=== PATIENT | female | born 1930 ===

== ENCOUNTER 2019-10-24 13:43 | Inpatient (IN) | payer OTHER ==
[~2019-10-24] VITALS: Ht 165.1 cm; Wt 83.6 kg
[2019-10-24] MEDS ORDERED: Lovastatin20 MG PO (13:54)
[2019-10-24 14:53] LABS: BASOPHILS ABSOLUTE AUTO 0.01 K/mm3 (0.00-0.23); BASOPHILS PERCENT AUTO 0 % (0-2); EOSINOPHILS ABSOLUTE AUTO 0.02 K/mm3 (0.00-0.68); EOSINOPHILS PERCENT AUTO 0 % (0-6); Hematocrit 38.2 % (33.0-51.0); Hemoglobin 12.4 g/dL (11.5-16.0); IMMATURE GRAN ABSOLUTE AUTO 0.02 K/mm3 (0.00-0.10); IMMATURE GRAN PERCENT AUTO 0 % (0-1); LYMPHOCYTES PERCENT AUTO 12 % (21-46); MONOCYTES ABSOLUTE AUTO 0.52 K/mm3 (0.16-1.47); MONOCYTES PERCENT AUTO 9 % (4-13); Mean Corpuscular HGB 29.3 pg (26.0-34.0); Mean Corpuscular HGB Conc 32.5 g/dL (31.5-36.5); Mean Corpuscular Volume 90 fL (80-100); Mean Platelet Volume 10.3 fL (9.1-12.4); NEUTROPHILS ABSOLUTE AUTO 4.51 K/mm3 (1.96-9.15); NEUTROPHILS PERCENT AUTO 78 % (41-73); Platelet Count 168 K/mm3 (150-400); RDW Standard Deviation 46.5 fL (35.1-46.3); Red Blood Cell Count 4.23 M/mm3 (3.80-5.20); White Blood Cell Count 5.78 K/mm3 (4.00-11.30)
[2019-10-24 15:12] LABS: Alanine Aminotransfer (ALT/SGP 19 U/L (12-78); Albumin/Globulin Ratio 0.8 (0.8-1.8); Alk Phos 67 U/L (50-136); Anion Gap 9 mmol/L (6-16); Aspartate Aminotrans (AST/SGOT 15 U/L (12-37); Bilirubin, Total 0.4 mg/dL (0.1-1.0); Blood Urea Nitrogen 16 mg/dL (8-24); Bun/Creatinine Ratio 21.6 (12.0-20.0); CO2, Blood 26 mmol/L (21-32); Calcium, Blood 8.3 mg/dL (8.5-10.1); Chloride, Blood 99 mmol/L (98-108); Creatinine, Blood 0.74 mg/dL (0.40-1.00); Glomerular Filtration Rate >60 (60-); Glucose, Blood 121 mg/dL (70-99); Potassium, Blood 3.8 mmol/L (3.5-5.5); Sodium, Blood 134 mmol/L (136-145); Troponin I <0.015 ng/mL (0.000-0.040)
[2019-10-25 02:58] LABS: Adenovirus Not Detected (NOT DETECT); Bordetella pertussis Not Detected (NOT DETECT); Chlamydophila pneumoniae Not Detected (NOT DETECT); Coronavirus 229E Not Detected (NOT DETECT); Coronavirus HKU1 Not Detected (NOT DETECT); Coronavirus NL63 Not Detected (NOT DETECT); Coronavirus OC43 Not Detected (NOT DETECT); Human Metapneumovirus Not Detected (NOT DETECT); Human Rhinovirus/Enterovirus Not Detected (NOT DETECT); Influenza A Not Detected (NOT DETECT); Influenza A/2009-H1 Not Detected (NOT DETECT); Influenza A/H1 Not Detected (NOT DETECT); Influenza A/H3 Not Detected (NOT DETECT); Influenza B Not Detected (NOT DETECT); Mycoplasma pneumoniae Not Detected (NOT DETECT); Parainfluenza Virus 1 Not Detected (NOT DETECT); Parainfluenza Virus 2 Not Detected (NOT DETECT); Parainfluenza Virus 3 Not Detected (NOT DETECT); Parainfluenza Virus 4 Not Detected (NOT DETECT); Respiratory Syncytial Virus Detected (NOT DETECT)
--- NOTE | 2019-10-25 04:46 | NUR ---
SHIFT SUMMARY PT ARRIVED FROM ER WITH SOME NAUSEA. PT TX AND WAS RELIEVED. PT ALSO COMPLAINED OF HEADACHE AND SORE THROAT. PT TX PER EMAR WITH RELIEF. PT HAS BEEN SLEEPING WELL. PT CURRENTLY SLEEPING AND BREATHING EASY. CALL LIGHT IN REACH.
[2019-10-25 05:02] LABS: BASOPHILS ABSOLUTE AUTO 0.01 K/mm3 (0.00-0.23); BASOPHILS PERCENT AUTO 0 % (0-2); EOSINOPHILS PERCENT AUTO 0 % (0-6); Hematocrit 35.8 % (33.0-51.0); Hemoglobin 11.5 g/dL (11.5-16.0); IMMATURE GRAN ABSOLUTE AUTO 0.02 K/mm3 (0.00-0.10); IMMATURE GRAN PERCENT AUTO 0 % (0-1); LYMPHOCYTES ABSOLUTE AUTO 0.49 K/mm3 (0.84-5.20); LYMPHOCYTES PERCENT AUTO 8 % (21-46); MONOCYTES ABSOLUTE AUTO 0.33 K/mm3 (0.16-1.47); MONOCYTES PERCENT AUTO 6 % (4-13); Mean Corpuscular HGB 29.3 pg (26.0-34.0); Mean Corpuscular HGB Conc 32.1 g/dL (31.5-36.5); Mean Corpuscular Volume 91 fL (80-100); Mean Platelet Volume 11.1 fL (9.1-12.4); NEUTROPHILS ABSOLUTE AUTO 5.02 K/mm3 (1.96-9.15); NEUTROPHILS PERCENT AUTO 86 % (41-73); Platelet Count 148 K/mm3 (150-400); RDW Coefficient Variation 14.2 % (11.7-14.2); RDW Standard Deviation 47.7 fL (35.1-46.3); Red Blood Cell Count 3.92 M/mm3 (3.80-5.20); White Blood Cell Count 5.87 K/mm3 (4.00-11.30)
[2019-10-25 05:44] LABS: Anion Gap 7 mmol/L (6-16); Blood Urea Nitrogen 12 mg/dL (8-24); Bun/Creatinine Ratio 18.3 (12.0-20.0); CO2, Blood 26 mmol/L (21-32); Calcium, Blood 8.1 mg/dL (8.5-10.1); Chloride, Blood 99 mmol/L (98-108); Creatinine, Blood 0.66 mg/dL (0.40-1.00); Glomerular Filtration Rate >60 (60-); Glucose, Blood 144 mg/dL (70-99); Potassium, Blood 3.7 mmol/L (3.5-5.5); Sodium, Blood 132 mmol/L (136-145)
[2019-10-25 06:10] LABS: Source, Urine Clean Catch
[2019-10-25 06:13] LABS: Bilirubin, Urine Neg (Neg); Blood, Urine 2+ (Neg); Glucose Qualitative, Urine 1+ (Neg); Ketones, Urine 1+ (Neg); Leukocyte Esterase, Urine Neg (Neg); Nitrite, Urine Neg (Neg); Protein, Urine 2+ (Neg); Urobilinogen, Urine NORM (Normal)
[2019-10-25 06:22] LABS: Appearance, Urine Clear (Clear); Color, Urine Yellow (P-Yellow)
[2019-10-25 06:24] LABS: Bacteria Many /hpf; Squamous Epithelial Cells Few /hpf (Few)
--- NOTE | 2019-10-25 17:08 | NUR ---
PATIENT IS ALERT AND ORIENTED AND COOPERATIVE WITH CARE. NO COMPLAINTS OF PAIN. PATIENT DID HAVE A TEMP OF 100.4, TREATED WITH TYLENOL. THE PATIENT'S ORAL TEMPERATURE IS NOW 98.6. SHE HAS HAD VISITORS THROUGHOUT THE DAY. SHE HAS SLEPT BETWEEN MEALS AND VISITORS. SHE GOT A SHOWER THIS AFTERNOON. COMPLAINED OF A SORE THROAT THIS MORNING. MEDS GIVEN PER EMAR. WILL CONTINUE TO MONITOR.
--- NOTE | 2019-10-26 06:59 | NUR ---
SHIFT SUMMARY PT HAD NO NEW ISSUES NOTED. PT CONTINUES TO HAVE A COUGH. PT HAD SOME CX PAIN RELATED TO HER COUGH. PT MEDICATED PER EMAR WITH RELIEF. PT HAS SLEPT WELL T/O SHIFT. PT CURRENTLY SLEEPING IN NO DISTRESS. CALL LIGHT IN REACH.
--- NOTE | 2019-10-26 17:34 | NUR ---
PATIENT IS ALERT AND ORIENTED AND COOPERATIVE WITH CARE. NO COMPLAINTS OF PAIN. TESSALON ORDERED BID. PATIENT HAS A NON PRODUCTIVE COUGH. PATIENT CALLS APPROPRIATELY. USES THE BSC WITH MINIMAL ASSISTANCE. WILL CONTINUE TO MONITOR.
--- NOTE | 2019-10-27 05:00 | NUR ---
SHIFT SUMMARY PT HAD NO NEW ISSUES NOTED. PT SLEPT WELL T/O SHIFT. PT COUGH AND PAIN IS RELIEVED WELL WITH ORDERED MEDS. PT STATES SHE FEELS STRONGER THIS SHIFT. PT CURRENTLY SLEEPING AND BREATHING EASY. CALL LIGHT IN REACH.
[2019-10-27 05:31] LABS: BASOPHILS ABSOLUTE AUTO 0.02 K/mm3 (0.00-0.23); BASOPHILS PERCENT AUTO 0 % (0-2); EOSINOPHILS ABSOLUTE AUTO 0.14 K/mm3 (0.00-0.68); EOSINOPHILS PERCENT AUTO 3 % (0-6); Hematocrit 38.2 % (33.0-51.0); Hemoglobin 12.1 g/dL (11.5-16.0); IMMATURE GRAN ABSOLUTE AUTO 0.01 K/mm3 (0.00-0.10); IMMATURE GRAN PERCENT AUTO 0 % (0-1); LYMPHOCYTES ABSOLUTE AUTO 1.08 K/mm3 (0.84-5.20); LYMPHOCYTES PERCENT AUTO 21 % (21-46); MONOCYTES ABSOLUTE AUTO 0.53 K/mm3 (0.16-1.47); MONOCYTES PERCENT AUTO 10 % (4-13); Mean Corpuscular HGB 28.7 pg (26.0-34.0); Mean Corpuscular HGB Conc 31.7 g/dL (31.5-36.5); Mean Corpuscular Volume 91 fL (80-100); Mean Platelet Volume 10.7 fL (9.1-12.4); NEUTROPHILS ABSOLUTE AUTO 3.47 K/mm3 (1.96-9.15); NEUTROPHILS PERCENT AUTO 66 % (41-73); Platelet Count 179 K/mm3 (150-400); RDW Coefficient Variation 13.9 % (11.7-14.2); RDW Standard Deviation 46.3 fL (35.1-46.3); Red Blood Cell Count 4.22 M/mm3 (3.80-5.20); White Blood Cell Count 5.25 K/mm3 (4.00-11.30)
[2019-10-27 05:48] LABS: Alanine Aminotransfer (ALT/SGP 22 U/L (12-78); Albumin, Blood 2.8 g/dL (3.4-5.0); Albumin/Globulin Ratio 0.7 (0.8-1.8); Alk Phos 65 U/L (50-136); Anion Gap 6 mmol/L (6-16); Aspartate Aminotrans (AST/SGOT 22 U/L (12-37); Bilirubin, Total 0.2 mg/dL (0.1-1.0); Blood Urea Nitrogen 11 mg/dL (8-24); Bun/Creatinine Ratio 15.9 (12.0-20.0); CO2, Blood 29 mmol/L (21-32); Calcium, Blood 8.5 mg/dL (8.5-10.1); Chloride, Blood 102 mmol/L (98-108); Creatinine, Blood 0.69 mg/dL (0.40-1.00); Globulin, Blood 4.2 g/dL (2.2-4.0); Glomerular Filtration Rate >60 (60-); Glucose, Blood 109 mg/dL (70-99); Potassium, Blood 3.9 mmol/L (3.5-5.5); Sodium, Blood 137 mmol/L (136-145)
--- NOTE | 2019-10-28 05:09 | NUR ---
NOC SHIFT SUMMARY PT IS PLEASANT AND COOPERATIVE WITH CARE. NO NEW CHANGES NOTED THIS SHIFT. VSS. TREATED FOR PAIN PER EMAR TO HER SATIFACTION. TREATED FOR COUGH WITH TESSALON PEARLS. PRESENTLY SLEEPING AND APPEARS IN NO ACUTE DISTRESS. WILL CONTINUE TO MONITOR.
--- NOTE | 2019-10-28 18:00 | NUR ---
SHIFT SUMMARY- PT A/O, PLESANT AND COOPERATIVE. PT HAS BEEN SLEEPING INTERMITENTLY THROUGHOUT THIS SHIFT. PT EATING AND DRINKING WELL. PT HAS WHEEZES THROUGHOUT LUNGS, RECIEVING TREATMENT FROM RT. EVALUATED BY PT THIS AFTERNOON. PT STATED THAT SHE NEEDED TO HAVE A BM. GAVE PRUNE JUICE, BUTTER, AND APPLE JUICE. PT HAS NOT HAD A BM OF YET.
--- NOTE | 2019-10-29 05:11 | NUR ---
SHIFT SUMMARY: VSS. AFEB. 02 93-94% ON RA. SOB WITH EXERTION. OCC MOIST SOUNDING, HACKING COUGH. CONT WITH COARSE WHEEZING IN L LUNG. A/OX3. MAKING NEEDS KNOWN. PT HAD A BM TONIGHT. HAS BEEN C/O DECREASED APETITE D/T POSSIBLE CONSTIPATION- PER PT. BED LOW, CALL BUTTON IN REACH.
[2019-10-29] MEDS ORDERED: GUAI600T33 PO (14:07)
[2019-10-29] MEDS ORDERED: ALBU90OI INH (14:08)
[2019-10-29] MEDS ORDERED: CEFU500T30 PO (14:41)
--- NOTE | 2019-10-29 15:03 | NUR ---
SUMMARY/DISCHARGE PT DISCHARGED TO HOME, PT VERBALIZED UNDERSTANDING OF DISCHARGE INSTRUCTIONS REGARDING FOLLOW UP AND MEDICATIONS, PT TAKEN OUT SAFELY VIA WHEELCHAIR WITH HER FAMILY AND STAFF
== END 2019-10-29 14:21 | disposition home health service (06) | DRG 193 ==
LOC: ER 13:43 → MEDS 21:37
PROVIDERS: Emergency Medicine; Internal Medicine; Nurse Practitioner Acute Care; Physician Assistant; ADMIT Hospitalist
DX: J18.9 Pneumonia, unspecified organism (principal); J96.01 Acute respiratory failure with hypoxia; Z85.118 Personal history of other malignant neoplasm of bronchus and lung; E87.5 Hyperkalemia
CPT/HCPCS: 0099U; 36415; 71046; 71260; 80048; 80053; 81001; 83880; 84484; 85025; 85379; 87086; 87449; 90686; 93005; 93010; 94640; 94644; 94760; 96365-59; 96366-59; 96367; 97110; 97112; 97162; 99285-25; A9270; J0456; J0696; J2405; J7030; J7050; Q9967